=== PATIENT | male | born 1935 ===

== ENCOUNTER 2020-04-21 16:48 | Outpatient (NON) | payer MEDICARE, SELFPAY ==
[2020-04-21 17:38] LABS: Add Urine Microscopic? YES; Appearance Urine Sl Cloudy (Clear); Bilirubin Urine Negative (Negative); Blood Urine 2+ (Negative); Color Urine Yellow (Yellow); Glucose Urine UA Negative (Negative); Ketones Urine Negative (Negative); Leukocyte Esterase Ur 1+ (Negative); Nitrate Urine Positive (Negative); Protein Urine Negative (Negative); Urobilinogen Urine 0.2 mg/dL (0.2-1.0)
[2020-04-21 17:42] LABS: Squamous Epithelial Cell Urine Rare /hpf (Few); WBC Urine 51-75 /hpf (0-3)
[2020-04-21 17:43] LABS: Bacteria Urine 1+ /hpf
== END 2020-04-21 16:49 ==
LOC: CHSLAB 16:51
PROVIDERS: Visit Provider Internal Medicine
DX: R31.9 Hematuria, unspecified (principal)
CPT/HCPCS: 81001; 87077; 87086; 87088; 87186

== ENCOUNTER 2020-11-01 21:35 | Outpatient (NON) | payer MEDICARE, SELFPAY ==
[2020-11-01 22:09] LABS: Add Urine Microscopic? YES; Appearance Urine Clear (Clear); Bilirubin Urine Negative (Negative); Blood Urine 3+ (Negative); Color Urine Light Yellow (Yellow); Glucose Urine UA Negative (Negative); Ketones Urine Trace (Negative); Leukocyte Esterase Ur 2+ (Negative); Nitrate Urine Positive (Negative); Protein Urine Negative (Negative)
[2020-11-01 22:24] LABS: Bacteria Urine 2+ /hpf; WBC Urine 16-20 /hpf (0-3)
== END 2020-11-01 21:36 | disposition home or self-care (01) ==
LOC: CHSLAB 21:37
PROVIDERS: Visit Provider Internal Medicine
DX: N40.1 Benign prostatic hyperplasia with lower urinary tract symptoms (principal); R33.8 Other retention of urine; N39.0 Urinary tract infection, site not specified
CPT/HCPCS: 81001; 87077; 87086; 87088; 87186